=== PATIENT | male | born 1950 | race Hispanic/Latino ===

== ENCOUNTER 2021-03-25 11:52 | Day surgery (SDC) | payer MEDICARE, OTHER ==
[~2021-03-25] VITALS: Ht 175.3 cm; Wt 78.0 kg
[~2021-03-25 11:52] MED LIST: ONDANSETRON ODT4 MG SL; TERBINAFINE HC250 MG PO; VENTOLIN HFA18 GM INH
--- NOTE | 2021-03-25 14:27 | NUR ---
03/25/21 Jennifer7 María Fall 1422- PT ARRIVES TO PACU AROUSABLE TO VOICE. PT FALLS BACK TO SLEEP WHEN NOT BEING STIMULATED. RESP EVEN AND UNLABORED. OXYGEN SAT HIGH 90'S ON 2L VIA NC. PT'S SYSTOLIC BP IS IN THE 80'S. PT'S BP WAS RUNNING THIS LOW IN THE ENDO ROOM WELL.
--- NOTE | 2021-03-26 10:48 | OR ---
[facility] [address], [place] [address] Signed DATE OF OPERATION: 03/25/2021 SURGEON: Nelly Irvin MD PREOPERATIVE DIAGNOSIS: Colon screening (no prior colonoscopy; asymptomatic). POSTOPERATIVE DIAGNOSES: 1. Extensive sigmoid and left-sided diverticulosis. 2. Diminutive polyp x2, rectum. PROCEDURE: Total colonoscopy to the cecum with cold morcellation polypectomy x2. ANESTHESIA: Intravenous sedation with fentanyl 150 mcg and Versed 6 mg. INDICATION: This 70-year-old man was referred by Dr. Sanchez for screening colonoscopy. He has never had colonoscopy in the past. He has no symptoms of bleeding, diarrhea, or constipation and no family history of colon cancer. He was actually seen in August of 2020, but due to the COVID pandemic and other factors, deferred any evaluation at this time. He has had preoperative COVID testing which shows no sign of abnormality. He is admitted to undergo screening colonoscopy after a long and extensive discussion once again regarding the risks of bleeding, infection, perforation, and so on. He and his understand this and they wished for him to proceed with colonoscopy for screening. FINDINGS: The prep was good. Complete colonoscopy was undertaken of the cecum without question. Unfortunately, the photo capture mechanism of the endo system was not functional and therefore photographs were not taken. There was no question though the cecum was intubated. He had extensive diverticular change of the sigmoid and left colon. There were 2 diminutive polyps of the rectum. Otherwise, there were no other findings of concern. DESCRIPTION OF PROCEDURE: The patient was brought to the endoscopy suite and placed in lateral decubitus position, given intravenous sedation to the point of slurred speech and nystagmus with full cardiopulmonary monitoring. Digital rectal examination showed a somewhat constricted Electronically Signed By: NELLY IRVIN MD 03/26/21 1048 PATIENT NAME: CRISTOBAL ARANDA OPERATIVE REPORT DATE OF : 46 REPORT #: [id number] PHYSICIAN: NELLY IRVIN MD PCP: NATALEE SANCHEZ MD REPORT IS CONFIDENTIAL AND NOT TO BE RELEASED WITHOUT AUTHORIZATION [facility] [address], [place] [address] Signed anal ring suggestive of anal stenosis, though not entirely certain of it. An Olympus video colonoscope was passed in the rectum and manipulated throughout the colon noting numerous diverticula of the sigmoid and left colon. The scope was ultimately passed to the cecum. Ileocecal valve and appendiceal orifice were identified. The abdominal wall palpation confirmed the scope tip in the right lower quadrant. The scope was withdrawn from that point. Examination throughout showed no sign of abnormality other than diverticular changes of left and sigmoid colon, which were extensive. In the rectum, there were two diminutive polyps, possibly hyperplastic. Both were excised. Retroflexed view showed some internal hemorrhoidal change, but no clear evidence of anal stenosis proper. The scope was removed and the patient was taken to the recovery room in good condition. CONCLUDING DIAGNOSES: 1. Diverticulosis, extensive, sigmoid and left colon. 2. Diminutive polyps of rectum x2 (excised). 3. Questionable low-grade anal stenosis, likely clinically silent. PLAN: Recommend repeat colonoscopy in 5 years, sooner if clinically indicated. Would recommend high-fiber diet. If problems, I am happy to see him again, particularly if he is having anal pain or similar such symptoms. He will return to the ongoing care of Dr. Sanchez otherwise. MD DENNY Sweeney/SHEILAL /[id number] cc: Natalee Sanchez MD Copies: NATALEE SANCHEZ DMD ~ Electronically Signed By: NELLY IRVIN MD 03/26/21 1048 PATIENT NAME: CRISTOBAL ARANDA OPERATIVE REPORT DATE OF : 46 REPORT #: [id number] PHYSICIAN: NELLY IRVIN MD PCP: NATALEE SANCHEZ MD REPORT IS CONFIDENTIAL AND NOT TO BE RELEASED WITHOUT AUTHORIZATION
--- NOTE | 2021-03-28 12:18 | PATH ---
[facility] [address], [place] [address] Signed SPECIMEN(S): A RECTAL POLYP SPECIMEN SOURCE: A. RECTAL POLYP CLINICAL HISTORY: Screening. Postop diagnosis: Diminutive polyp x 2; low grade anal stenosis; diverticulosis. MICROSCOPIC DESCRIPTION: Histologic sections of all submitted blocks are examined by light microscopy. These findings, together with the gross examination, support the pathologic diagnosis. FINAL PATHOLOGIC DIAGNOSIS: Rectum, polyp, polypectomy: - Hyperplastic polyp. - Negative for dysplasia or malignancy. NAL:cml:C2NR GROSS DESCRIPTION: The specimen, labeled "RC, 1," and designated on the requisition "rectum polypectomy," is received in formalin and consists of two justice soft tissue fragments that measure 0.5 cm in greatest dimension. The specimen is entirely submitted in cassette (A1). AI (under the direct supervision of a pathologist) The Gross Description was prepared using a voice recognition system. The report was reviewed for accuracy; however, sound-alike word errors, addition and/or deletions may occur. If there is any question about this report, please contact Client Services. PERFORMING LABORATORY: The technical component was performed by [facility], [address] [place] [id number] (Correctional Counselor/Case Manager: Liv Guevara MD; CLIA# [id number]). [facility] [address] [address] (CLIA# [id number]). Diagnostician: Isabel Fraser MD Pathologist Electronically Signed 03/28/2021 PATIENT NAME: CRISTOBAL ARANDA PATHOLOGY DATE OF : 46 REPORT #: [id number] PHYSICIAN: [facility] PCP: NATALEE SANCHEZ MD REPORT IS CONFIDENTIAL AND NOT TO BE RELEASED WITHOUT AUTHORIZATION [address] [place], [place] [address] Signed Copies: ~ PATIENT NAME: CRISTOBAL ARANDA PATHOLOGY DATE OF : 46 REPORT #: [id number] PHYSICIAN: [facility] PCP: NATALEE SANCHEZ MD REPORT IS CONFIDENTIAL AND NOT TO BE RELEASED WITHOUT AUTHORIZATION
== END 2021-03-25 15:05 | disposition home or self-care (01) ==
LOC: OPS 11:52 → DS 11:56 → OPS 13:00
PROVIDERS: ATTEND Surgery
PROC: 0DBP8ZZ Excision of Rectum, Via Natural or Artificial Opening Endoscopic (ICD-10-PCS; principal; 2021-03-25 13:00)
DX: Z12.11 Encounter for screening for malignant neoplasm of colon (principal); K62.1 Rectal polyp; K57.30 Diverticulosis of large intestine without perforation or abscess without bleeding; K64.8 Other hemorrhoids; G47.30 Sleep apnea, unspecified; Z98.890 Other specified postprocedural states
CPT/HCPCS: 99153; G0500; J2250; J3010; J7121

== ENCOUNTER 2021-08-16 13:22 | Emergency (ER) | payer MEDICARE, OTHER ==
[~2021-08-16] VITALS: Ht 175.3 cm; Wt 77.6 kg
[2021-08-16] MEDS ORDERED: OMEPRAZOLE20 MG PO (13:36)
[2021-08-16] MEDS ORDERED: SYMBICORT 16010.2 GM INH (13:36)
[2021-08-16] MEDS ORDERED: ONDANSETRON ODT8 MG PO (16:33)
== END 2021-08-16 16:46 | disposition home or self-care (01) ==
LOC: ED 13:22
DX: K29.00 Acute gastritis without bleeding (principal); I67.1 Cerebral aneurysm, nonruptured; J45.909 Unspecified asthma, uncomplicated; Z87.891 Personal history of nicotine dependence; Z79.899 Other long term (current) drug therapy
CPT/HCPCS: 70450; 70496; 70498; 80053; 84484; 85025; 99284-25; J2405; J7030